=== PATIENT | male | born 1995 | race Hispanic/Latino ===

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

== ENCOUNTER 2017-01-26 23:41 | Emergency (ER) | payer SELFPAY ==
[~2017-01-26] VITALS: Ht 175.3 cm; Wt 79.5 kg
[2017-01-26 23:46] VITALS: BP 116/68; PULSE 73; RESP 16; O2SAT 98
--- NOTE | 2017-01-27 01:56 | ED.REPORT ---
HPI-Extremity Problem Upper Date of Service Jan 27, 2017 ED Provider: Dr. Neymar Salmeron The patient is a 21 year old male who presents to the ED due to an infection in the right index finger. He cut his finger several days ago on an alternator, continued to work through it, and now the area is infected, red, and swollen. The finger has drained pus and blood slightly on its own. He denies fever. Patient is allergic to Keflex. Nursing Notes Stated Complaint: R FINGER,R TOE INFECTION Chief Complaint: Extremity Trauma Nursing Notes Reviewed: Yes Allergies: Coded Allergies: Cephalexin Monohydrate (Verified Allergy, Unknown, 12/31/16) Miscellaneous Medications Omeprazole-Expunged Drug, Do Not Renew! (Omeprazole-Expunged Drug, Do Not Renew! ) 20 Mg Capcr 20 MG PO General Time Seen by MD: 01:56 Chief Complaint Finger injury right 2 Hx Obtained From: Patient Arrived By: Walk-in Onset Occurred: 2 days ago Symptom Duration: Since onset Caused by: Accidental Location: : Finger right 2 Quality: Burning, Painful Severity: Current: Mild Recent Healthcare: No recent doctor visit, No recent hospitalization Similar Sx Previous: No Past Medical History Past Medical History Denies Past Surgical History Denies Smoking History Unknown if Ever Smoker Social History Alcohol Use: In recovery Other Social History: Good social support, Local resident Ambulatory Status Independent Review of Systems Constitutional: Denies: Fever Musculoskeletal: Reports: Extremity pain (right index finger ), Extremity swelling (right index finger ) Complete sys rev & neg: except as marked. Physical Exam Initial Vital Signs Vital Signs (First) Date Time Temp Pulse Resp B/P Pulse Ox O2 Delivery O2 Flow Rate FiO2 01/26/17 23:46 36.6 73 16 116/68 98 Room Air Initial VS: Reviewed General/Constitutional: Awake, Alert, No acute distress Respiratory / Chest: Atraumatic, Breath sounds NL Cardiovascular: Heart rate NL, Regular rhythm, Heart sounds NL, No murmurs, No rubs, Cap refill not delayed Wrist / Hand: Atraumatic, Inspection NL, Full range of motion, No snuffbox tenderness, Neurologic intact, Vascular intact, No ligamentous injury, Tendon function NL, No compartment syndrome, No circumferential injury, No clubbing/ cyanosis, No edema Finger Exam : Finger Exam: Positive: Finger name... (R index), Swelling present..., Tenderness present... (Mild), Warmth present abscess over right dorsal aspect of index finger Skin: Atraumatic, Color NL, Warm, Dry Right Great Toe: Positive: Swelling present... (Mild), Tenderness present... ( Mild) Procedures Incision & Drainage Abscess I & D Abscess: draining abscess on PIP joint, dorsal aspect of right finger drained pus and blood Time: 02:14 Procedure Performed by: ED physician Consent / Setup / Site Prep: Informed consent provided, Time-out performed, Hand hygiene observed, Stand sterile technique, Sterile drapes applied Skin Preparation Agent: Betadine Local Anesthesia: Lidocaine 1% Post-Procedure / Complications: Condition improved, Tolerated procedure well , Patient stable Re-Eval/Medical Decision Med Decision/Clinical Course 21-year-old male presents with an infected left index finger. He cut it a few days ago on an alternator. There is no swelling over the PIP joint with some erythema. There is an abscess that is draining spontaneously. There is mild cellulitis. No evidence of flexor or extensor tenosynovitis however. He has full range of motion of the joint without evidence of joint infection. He declined x-ray imaging. I performed a digital block and then carefully open up the abscess cavity. I was very conscious to avoid the tendon in the joint. Small incision was made in the remainder of the purulent material was drained. Finger was copiously irrigated and dressed. This is going to be a staph or strep infection. He is allergic to Keflex and possibly amoxicillin. I therefore chose clindamycin. He received the first dose IV. We then dressed the finger and an antibiotic ointment dressing. I will refer him to ortho I called the answering service for the orthopedic community voice mailbox. I left all the pertinent information. Counseled Regarding: Diagnosis, Lab results, Need for follow-up, When/why to return to ED Discharge & Departure Impression: Primary Impression: Abscess of right index finger Disposition: Home Discharge Condition All VS Reviewed: Yes Condition: Stable Patient Instructions: Abscess Incision and Drainage (ED) Additional Instructions: Call orthopedics referral tomorrow to make a follow up appointment and have your finger looked at in 42 to 78 hours. I have given you a prescription for Clindamycin for 7 days. Return to the Emergency Department for any fevers, redness, further swelling, or any new or worsening symptoms. [place] one every 6- 8 hours as needed for severe pain. Take the clindamycin 3 times daily. This infection has risk of involving the joint tenderness of follow-up is essential. Do not drive or drink alcohol or consume acetaminophen while taking the [place]. I left a message with the orthopedic clinic. You are to call them first thing in the morning to set up the follow up. If you develop any diarrhea while taking the clindamycin have yourself tested for Clostridium difficile. This can be a serious colon infection. Referrals: NOPCP (PCP) Pedro Owen Attestation Portion of this note were transcribed by Juliette Hutson. I, Dr. Salmeron, personally performed the history, physical exam, and medical decision-making: I reviewed and confirmed the accuracy for the information in the transcribed note. Signed by: parvin Mendes, 01/27/17 0230 copies to: Pedro Owen Todd P DO Jan 27, 2017 01:56 Juliette Hutson Jan 27, 2017 02:10
[2017-01-27] MEDS ORDERED: Clindamycin Inj 900 MG in IV Premix 1 EACH IV ONE (02:20)
[2017-01-27] MEDS ORDERED: _HYDROcodone/APAP 5-325 mg Tablet PO PRN (02:20)
[2017-01-27 02:59] VITALS: BP 110/62; PULSE 78; RESP 16; O2SAT 99
== END 2017-01-27 03:04 | disposition home or self-care (01) ==
LOC: SED 23:41
DX: L02.511 Cutaneous abscess of right hand (principal); Z88.1 Allergy status to other antibiotic agents